=== PATIENT | male | born 1950 | race Caucasian/White ===

== ENCOUNTER → 2017-07-17 | Outpatient (CLI) | payer OTHER ==
[~2017-07-17] MED LIST: ABA250I IVPB; ACET650T40 PO; ARMO150T4 PO; ATOR20TA65 PO; BUPR-472 PO; CITA-128 PO; CITA-139 PO; CYCL10TA29 PO; DIC50 PO; DICL-195 PO; DIPH0.5D12 IM; FAMC500T18 PO; FLUD0.1T12 PO; FOL1 PO; FOLI-68 PO; GABA-547 PO; GABA-549 PO; INF100I IV; LIDO700A29 TD; LOR5/325 PO; METH2.5T43 PO; METH20CP17 PO; METH20TA40 PO; METH7.5T2 PO; MONT10TA4 PO; NABU-95 PO; PEN250 PO; PER PO; PNEU0.5D3 IM; PSYP PO; TRA50 PO; TRAM200T2 PO; TRAM300T5 PO; TYLENOL PO; VALA100059 PO; [UNRECOGNIZED DRUG - OTHER]
== END ==
LOC: LAB 14:36
PROVIDERS: ATTEND Internal Medicine Rheumatology
DX: M06.9 Rheumatoid arthritis, unspecified (principal)
CPT/HCPCS: 36415; 82040; 82247; 82310; 82374; 82435; 82565; 82947; 84075; 84132; 84155; 84295; 84450; 84460; 84520; 85027; 85651

== ENCOUNTER 2017-09-04 10:00 | Outpatient (RCR) | payer OTHER ==
[2017-06-12 10:23] VITALS: BP 140/92
[2017-07-10 10:00] VITALS: BP 130/87
[2017-07-10] MEDS: LIDOCAINE/SOD BICARB 8.4% SYR ID PRN ×2 (10:03→10:33)
[2017-07-10] MEDS: NS(*) 0.9% 100 ML BAG 100 ML IVPB PRN ×2 (10:04→10:33)
[2017-08-07 10:05] VITALS: BP 135/88
[2017-08-07] MEDS: NS(*) 0.9% 100 ML BAG 100 ML IVPB PRN (10:42)
[2017-08-07] MEDS: LIDOCAINE/SOD BICARB 8.4% SYR ID PRN (10:42)
[~2017-09-04 10:00] MED LIST changes: +ABATACEPT IVPB ONE; +DEXTROSE 5%(*) 100 ML BAG 100 ML IVPB PRN; +DULO30CA6 PO; +NS 0.9% IVPB ONE
[2017-09-04 10:15] VITALS: BP 126/93
[2017-09-04] MEDS: NS(*) 0.9% 100 ML BAG 100 ML IVPB PRN (10:53)
[2017-09-04] MEDS: LIDOCAINE/SOD BICARB 8.4% SYR ID PRN (10:53)
[2017-09-04] MEDS ORDERED: NS 0.9% IVPB ONE (11:00)
[2017-09-04] MEDS ORDERED: ABATACEPT IVPB ONE (11:00)
== END 2017-09-09 ==
LOC: SPU 10:00
PROVIDERS: ATTEND Internal Medicine Rheumatology
DX: M06.9 Rheumatoid arthritis, unspecified (principal)
CPT/HCPCS: 96365; J0129; J7050

== ENCOUNTER → 2017-09-12 | Outpatient (CLI) | payer OTHER ==
[~2017-09-12] MED LIST changes: -ABATACEPT IVPB ONE; -DEXTROSE 5%(*) 100 ML BAG 100 ML IVPB PRN; -NS 0.9% IVPB ONE
--- NOTE | 2017-09-12 11:28 | RADIOLOGY IMAGING REPORT ---
FACILITY: [facility] PATIENT NAME: Jose Luis Beasley : 1950 MR: [id number] V: [id number] EXAM DATE: ORDERING PHYSICIAN: MONIQUE SHETH TECHNOLOGIST: [place] [facility] [place] Patient: Jose Luis Beasley : 1950 Visit/Account:[id number] Date of Sevice: 09/12/2017 KNEE 3 VIEW RIGHT Given history: Rheumatoid arthritis COMPARISON STUDIES: NONE FINDINGS: Osseous structures: Intact without evidence of fracture . Joints: Joint spaces well-maintained. There is no evidence of joint space narrowing. There may be very minimal mineral deposition along the cartilaginous surface of the femoral condyles seen in the lateral view. No evidence of joint effusion. Soft tissues: normal . IMPRESSION: Very minimal intra-articular mineral deposition. Right knee joint otherwise normal Report Dictated By: Adin Rahman MD at 09/12/2017 11:19 AM Report E-Signed By: Adin Rahman MD at 09/12/2017 11:23 AM WSN:[id number]
== END ==
LOC: RAD 10:45
PROVIDERS: ATTEND Internal Medicine Rheumatology
DX: M25.561 Pain in right knee (principal); G89.29 Other chronic pain

== ENCOUNTER → 2017-11-15 | Outpatient (CLI) | payer OTHER ==
[~2017-11-15] MED LIST changes: -CITA-139 PO; +CITA-145 PO; +METH40CP PO
== END ==
LOC: LAB 08:02
PROVIDERS: ATTEND Nurse Practitioner Family
DX: R42 Dizziness and giddiness (principal); R10.9 Unspecified abdominal pain
CPT/HCPCS: 81001

== ENCOUNTER → 2017-12-22 | Outpatient (CLI) | payer OTHER ==
[~2017-12-22] MED LIST changes: +DICL-192 PO; +LORA-788 PO; +OXYGENHOME INH; +TRIA10.8
--- NOTE | 2017-12-22 08:55 | RADIOLOGY IMAGING REPORT ---
FACILITY: [facility] PATIENT NAME: Jose Luis Beasley : 1950 MR: [id number] V: [id number] EXAM DATE: ORDERING PHYSICIAN: GUI GORDON TECHNOLOGIST: Location: [facility] Patient: Jose Luis eBasley : 1950 Visit/Account:[id number] Date of Sevice: 12/22/2017 CHEST PA AND LAT HISTORY: hypoxia COMPARISON: None FINDINGS: Cardiomediastinal contours: Normal Lungs and pleura: Normal Bones/soft tissues: Normal Other findings: None significant IMPRESSION: 1. Normal chest Report Dictated By: Emerson German MD at 12/22/2017 8:51 AM Report E-Signed By: Emerson German MD at 12/22/2017 8:51 AM WSN:[id number]
== END ==
LOC: RAD 08:06
PROVIDERS: ATTEND Nurse Practitioner Family
DX: R09.02 Hypoxemia (principal); R06.02 Shortness of breath
CPT/HCPCS: 71046

== ENCOUNTER 2017-12-25 09:52 | Outpatient (RCR) | payer OTHER ==
[2017-10-02 09:54] VITALS: BP 141/80
[2017-10-02] MEDS: LIDOCAINE/SOD BICARB 8.4% SYR ID PRN (11:06)
[2017-10-02] MEDS: NS(*) 0.9% 100 ML BAG 100 ML IVPB PRN (11:06)
[2017-10-30 10:10] VITALS: BP 124/69
[2017-10-30] MEDS: NS(*) 0.9% 100 ML BAG 100 ML IVPB PRN (10:13)
[2017-10-30] MEDS: LIDOCAINE/SOD BICARB 8.4% SYR ID PRN (10:13)
[2017-10-30 10:16] LABS: PLATELET COUNT, AUTOMATED 214 K/uL (150-450)
[2017-10-30 11:07] VITALS: BP 147/84
[2017-11-27 10:03] VITALS: BP 144/74
[2017-11-27] MEDS: LIDOCAINE/SOD BICARB 8.4% SYR ID PRN (10:07)
[2017-11-27] MEDS: NS(*) 0.9% 100 ML BAG 100 ML IVPB PRN (10:07)
[2017-11-27 11:19] VITALS: BP 140/82
[~2017-12-25 09:52] MED LIST changes: +ABATACEPT IVPB ONE; +DEXTROSE 5%(*) 100 ML BAG 100 ML IVPB PRN; +NS 0.9% IVPB ONE
[2017-12-25 09:58] VITALS: BP 134/74
[2017-12-25] MEDS: LIDOCAINE/SOD BICARB 8.4% SYR ID PRN (10:15)
[2017-12-25] MEDS: NS(*) 0.9% 100 ML BAG 100 ML IVPB PRN (10:16)
[2017-12-25] MEDS ORDERED: NS 0.9% IVPB ONE (11:00)
[2017-12-25] MEDS ORDERED: ABATACEPT IVPB ONE (11:00)
[2018-01-03] MEDS ORDERED: MONT10TA4 PO (09:59)
== END 2017-12-31 ==
LOC: SPU 09:52
PROVIDERS: ATTEND Nurse Practitioner Family
DX: M06.9 Rheumatoid arthritis, unspecified (principal)
CPT/HCPCS: 36415; 84153; 85025; 96365; J0129; J7050; 82040; 82247; 82310; 82374; 82435; 82565; 82947; 84075; 84132; 84155; 84295; 84450; 84460; 84520

== ENCOUNTER → 2017-12-31 | Outpatient (CLI) | payer OTHER ==
[~2017-12-31] MED LIST changes: -ABATACEPT IVPB ONE; -DEXTROSE 5%(*) 100 ML BAG 100 ML IVPB PRN; -NS 0.9% IVPB ONE
== END ==
LOC: RESP 07:00
PROVIDERS: ATTEND Nurse Practitioner Family
DX: J98.4 Other disorders of lung (principal)
CPT/HCPCS: 94060; 94726; 94729

== ENCOUNTER 2018-01-25 08:15 | Outpatient (RCR) | payer OTHER ==
--- NOTE | 2017-12-12 16:34 | PT INITIAL EVALUATION ---
MEDICAL DIAGNOSIS: R 53.82 Chronic fatigue syndrome, M06.9 RA, R53.1 Generalized weakness TREATMENT DIAGNOSIS: Same DATE OF ONSET: 07/09/12 SUBJECTIVE: Jose Luis Beasley presents to PT for chronic fatigue, insidious onset about 5 years ago, worsened 4 years ago after shingles. He hasn't been able to exercise and hope that exercise would help reduce fatigue. Pain location is knees and described as ache. Pain scale is 0 on a ten point pain scale currently. Pain is worse with walking and better with rest. 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 Jose Luis relates he gets through his 12 hour shifts fine, but then he's too tired to do house and yard work when he's home. OBJECTIVE: Posture: Midline spine, heels 4" apart. ROM: UE's, LE's and spinal AROM WNL. Strength: UE's 5-/5, quad 4+/5, hamstrings 5-/5, ankle DF 5-/5 and PF 4/5 B. Mobility: Independent Gait: Six minutes walk test pre-test post-test BP 154/76 147/89 HR 67 72 SpO2 88% 86% Room air Dyspnea 0 2 Jhon 0-20 Fatigue 10 11 Jhon 0-20 Distance 1,810 feet, 98% of norm of 1,837 feet. [place] O2 recovered to the low 90's within one minute of seated rest. He rated B knee pain 2/10 after this test (it was 0/10 before the test). Balance: NT ASSESSMENT: Jose Luis Beasley presents with mildly low O2 sats during his ambulation , generalized weakness which may be contributing to fatigue. He's a good candidate to perform a graded exercise program to address fatigue so he can perform house and yard work outside his [employer] [employer] [facility] job. I'd like to build up to a gym program Jose Luis can do at [employer] [facility] [facility] before his work shift. Short Term Goals/Patient's Goals 4 weeks: Jose Luis reports fatigue level is 4-5/20 on Jhon scale, is independent with a gym exercise program. PLAN: Patient to be seen for Strengthening/condition, Spinal Stabilization, Stretching, Gait Trg/Balance Trg, Home Exercise Program 3x/Week for 6 weeks Thank you for this referral. If you have any questions, comments, or concerns about this report or plan, please contact me at . [facility]
--- NOTE | 2018-01-25 08:59 | PT PLAN OF CARE ---
Physician: Dulce Sebastian APRN [employer] Patient is being seen: 1-2x/week Therapist: Kate Villanueva, DHARMESH Medical Diagnosis: R 53.82 Chronic fatigue syndrome, M06.9 RA, R53.1 Generalized weakness Treatment Diagnosis: Same Date of Onset: 07/09/12 Date of Initial Evaluation: 12/12/17 Date patient was last seen: 01/25/18 Number of treatments: 8 Number of cancellations/No shows: 7 INTERVENTIONS: Strengthening/condition Spinal Stabilization Stretching Gait Trg/Balance Trg Home Exercise Program GOALS/PATIENT'S GOAL: Met: 4 weeks: Jose Luis reports fatigue level is 4-5/20 on Jhon scale, is independent with a gym exercise program. Patient Compliance: Good Prognosis: Good Reasons for discontinuing therapy: S: Jose Luis has [employer] gym and rides his bike outdoors. He relates he's using his gym membership, now mowing his yard and doing house work. His knees flared with squats, but are doing well with weighted straight leg raise strengthening. Posture: Midline spine, heels 4" apart. Strength: All improved with: UE's 5/5 except wrist extensors 5-/5 B, quads 5-/5 , hamstrings 5/5, ankle DF 5/5, PF 4+/5 B. We didn't do the six minute walk test as Jose Luis has been monitoring his O2 sats and doing well. Mobility: Independent A/P: Jose Luis Beasley has improved strength and ADL function. He's independent with his gym program. I'll DC PT to gym program. Thank you. CALE
[2018-01-28] MEDS ORDERED: TRAM200T2 PO ×2 (10:34→10:35)
== END 2018-01-25 09:29 | disposition home or self-care (01) ==
LOC: PT 08:15
PROVIDERS: ATTEND Nurse Practitioner Family
DX: R53.82 Chronic fatigue, unspecified (principal); M06.9 Rheumatoid arthritis, unspecified; R53.1 Weakness; F90.9 Attention-deficit hyperactivity disorder, unspecified type; Z99.89 Dependence on other enabling machines and devices
CPT/HCPCS: 97162

== ENCOUNTER 2018-03-25 09:48 | Outpatient (RCR) | payer OTHER ==
[2018-01-22 09:56] VITALS: BP 122/70
[2018-01-22 10:35] LABS: PLATELET COUNT, AUTOMATED 229 K/uL (150-450)
[2018-01-22] MEDS: LIDOCAINE/SOD BICARB 8.4% SYR ID PRN (11:03)
[2018-01-22] MEDS: NS(*) 0.9% 100 ML BAG 100 ML IVPB PRN (11:04)
[2018-01-22 18:04] VITALS: BP 144/81
[2018-02-19] MEDS: NS(*) 0.9% 100 ML BAG 100 ML IVPB PRN ×2 (10:07→10:35)
[2018-02-19 10:34] VITALS: BP 140/72
[2018-02-19] MEDS: LIDOCAINE/SOD BICARB 8.4% SYR ID PRN (10:44)
[~2018-03-25 09:48] MED LIST changes: +ABATACEPT IVPB ONE; +DEXTROSE 5%(*) 100 ML BAG 100 ML IVPB PRN; +NS 0.9% IVPB ONE
[2018-03-25 10:08] VITALS: BP 126/80
[2018-03-25] MEDS ORDERED: NS 0.9% IVPB ONE (10:10)
[2018-03-25] MEDS ORDERED: ABATACEPT IVPB ONE (10:10)
[2018-03-25] MEDS: LIDOCAINE/SOD BICARB 8.4% SYR ID PRN (10:12)
[2018-03-25] MEDS: NS(*) 0.9% 100 ML BAG 100 ML IVPB PRN (10:13)
[2018-03-25 11:31] VITALS: BP 130/76
== END 2018-04-21 ==
LOC: SPU 09:48
PROVIDERS: ATTEND Nurse Practitioner Family
DX: M06.9 Rheumatoid arthritis, unspecified (principal)
CPT/HCPCS: 85025; 96365; 96366; J0129; J7050; 82040; 82247; 82310; 82374; 82435; 82565; 82947; 84075; 84132; 84155; 84295; 84450; 84460; 84520

== ENCOUNTER 2018-07-16 10:00 | Outpatient (RCR) | payer OTHER ==
[2018-04-23 10:08] VITALS: BP 148/89
[2018-04-23 10:46] LABS: PLATELET COUNT, AUTOMATED 205 K/uL (150-450)
[2018-04-23] MEDS: NS(*) 0.9% 100 ML BAG 100 ML IVPB PRN (11:00)
[2018-04-23] MEDS: LIDOCAINE/SOD BICARB 8.4% SYR ID PRN (11:00)
[2018-05-21 09:57] VITALS: BP 148/83
[2018-05-21 09:58] VITALS: BP 139/76
[2018-05-21] MEDS: LIDOCAINE/SOD BICARB 8.4% SYR ID PRN (10:09)
[2018-05-21] MEDS: NS(*) 0.9% 100 ML BAG 100 ML IVPB PRN (10:10)
[2018-06-18 10:08] VITALS: BP 153/90
[2018-06-18] MEDS: LIDOCAINE/SOD BICARB 8.4% SYR ID PRN (10:15)
[2018-06-18] MEDS: NS(*) 0.9% 100 ML BAG 100 ML IVPB PRN (10:15)
[2018-06-18 11:03] VITALS: BP 151/83
[2018-07-16 10:15] VITALS: BP 150/76
[2018-07-16] MEDS: NS(*) 0.9% 100 ML BAG 100 ML IVPB PRN (10:20)
[2018-07-16 10:31] LABS: PLATELET COUNT, AUTOMATED 226 K/uL (150-450)
[2018-07-16] MEDS ORDERED: NS 0.9% IVPB ONE (10:50)
[2018-07-16] MEDS ORDERED: ABATACEPT IVPB ONE (10:50)
[2018-07-16 11:15] VITALS: BP 147/82
== END 2018-07-21 ==
LOC: SPU 10:00
PROVIDERS: ATTEND Nurse Practitioner Family
DX: M06.9 Rheumatoid arthritis, unspecified (principal); Z79.899 Other long term (current) drug therapy
CPT/HCPCS: 85025; 96365; 96366; J0129; J7050; 82040; 82247; 82310; 82374; 82435; 82565; 82947; 84075; 84132; 84155; 84295; 84450; 84460; 84520

== ENCOUNTER 2018-08-12 16:26 | Outpatient (RCR) | payer OTHER ==
[~2018-08-12 16:26] MED LIST changes: -ABATACEPT IVPB ONE; -DEXTROSE 5%(*) 100 ML BAG 100 ML IVPB PRN; -NS 0.9% IVPB ONE
[2018-08-13] MEDS ORDERED: DEXTROSE 5%(*) 100 ML BAG 100 ML IVPB PRN (07:00)
[2018-08-13] MEDS ORDERED: NS(*) 0.9% 100 ML BAG 100 ML IVPB PRN (07:00)
[2018-08-13] MEDS ORDERED: LIDOCAINE/SOD BICARB 8.4% SYR ID PRN (07:00)
== END 2018-08-13 16:59 | disposition home or self-care (01) ==
LOC: SPU 16:26
PROVIDERS: ATTEND Nurse Practitioner Family
DX: M06.9 Rheumatoid arthritis, unspecified (principal); Z79.899 Other long term (current) drug therapy

== ENCOUNTER → 2018-10-15 | Outpatient (CLI) | payer OTHER ==
[~2018-10-15] MED LIST changes: +ATOR40TA24 PO
== END ==
LOC: SPU 10:27
PROVIDERS: ATTEND Nurse Practitioner Family
DX: M06.9 Rheumatoid arthritis, unspecified (principal); Z79.899 Other long term (current) drug therapy
CPT/HCPCS: 82465; 83718; 84153; 84478

== ENCOUNTER 2018-11-12 09:49 | Outpatient (RCR) | payer OTHER ==
[2018-08-19 09:58] VITALS: BP 146/78
[2018-08-19] MEDS: LIDOCAINE/SOD BICARB 8.4% SYR ID PRN (10:08)
[2018-08-19] MEDS: NS(*) 0.9% 100 ML BAG 100 ML IVPB PRN (10:11)
[2018-08-19 12:03] VITALS: BP 150/84
[2018-09-17 10:01] VITALS: BP 172/80
[2018-09-17] MEDS: LIDOCAINE/SOD BICARB 8.4% SYR ID PRN (10:14)
[2018-09-17] MEDS: NS(*) 0.9% 100 ML BAG 100 ML IVPB PRN (10:15)
[2018-09-17 11:26] VITALS: BP 160/86
[2018-10-15 10:25] VITALS: BP 152/95
[2018-10-15] MEDS: LIDOCAINE/SOD BICARB 8.4% SYR ID PRN (10:54)
[2018-10-15] MEDS: NS(*) 0.9% 100 ML BAG 100 ML IVPB PRN (10:55)
[2018-10-15 10:57] LABS: PLATELET COUNT, AUTOMATED 253 K/uL (150-450)
[~2018-11-12 09:49] MED LIST changes: +ABATACEPT IVPB ONE; +DEXTROSE 5%(*) 100 ML BAG 100 ML IVPB PRN; -DIPH0.5D12 IM; +DIPH0.5S2 IM; +NS 0.9% IVPB ONE
[2018-11-12 09:55] VITALS: BP 152/83
[2018-11-12] MEDS: LIDOCAINE/SOD BICARB 8.4% SYR ID PRN (10:24)
[2018-11-12] MEDS ORDERED: NS 0.9% IVPB ONE (10:25)
[2018-11-12] MEDS ORDERED: ABATACEPT IVPB ONE (10:25)
[2018-11-12] MEDS: NS(*) 0.9% 100 ML BAG 100 ML IVPB PRN (10:25)
[2018-11-12 11:32] VITALS: BP 162/79
== END 2018-11-14 ==
LOC: SPU 09:49
PROVIDERS: ATTEND Nurse Practitioner Family
DX: M06.9 Rheumatoid arthritis, unspecified (principal); Z79.899 Other long term (current) drug therapy
CPT/HCPCS: 85025; 96365; J0129; J7050; 82040; 82247; 82310; 82374; 82435; 82565; 82947; 84075; 84132; 84155; 84295; 84450; 84460; 84520

== ENCOUNTER → 2019-01-06 | Outpatient (CLI) | payer OTHER ==
[~2019-01-06] MED LIST changes: -ABATACEPT IVPB ONE; -DEXTROSE 5%(*) 100 ML BAG 100 ML IVPB PRN; -NS 0.9% IVPB ONE; +PNEI IJ
--- NOTE | 2019-01-06 13:18 | RADIOLOGY IMAGING REPORT ---
FACILITY: [facility] PATIENT NAME: Jose Luis Beasley : 1950 MR: [id number] V: [id number] EXAM DATE: ORDERING PHYSICIAN: GUI GORDON TECHNOLOGIST: Location: [facility] Patient: Jose Luis Beasley : 1950 Visit/Account:[id number] Date of Sevice: 01/06/2019 BONE DENSITY HISTORY: osteopenia COMPARISON: DEXA examination from November 2015 FINDINGS: LUMBAR SPINE: Bone mineral density (BMD) measured from L1-L4 correlates with a Z-score of 0.0 and a T-score of 0.3 which is normal as defined by the World Health Organization. The corresponding risk of fracture in t he lumbar spine is not increased compared with a young adult reference population. This value has de creased by 2.6% since the prior study. More than 5% change is considered significant. HIP: Bone mineral density (BMD) measured in the left total hip region correlates with a Z-score of -1.3 an d a T-score of -1.4 which is osteopenia as defined by the World Health Organization. The correspondi ng risk of fracture in the hip is 2-3 times compared with a young adult reference population. This v alue has decreased by 5.2% since the prior study. More than 5% change is considered significant. Bone mineral density (BMD) measured in the left Femoral Neck region measures 0.826 g/cm2. T score is -1.9. Osteopenia. IMPRESSION: 1. Lumbar spine: Normal. There has been no significant change in the bone mineral density since previous exam. 2. Left Total Hip: Osteopenia. There has been significant interval decrease in the bone mineral de nsity since the previous exam. 3. Left Femoral Neck: Bone Mineral Density is 0.826 g/cm2. Osteopenia The next DEXA scan of this patient should include the following sites: L1-L4 and left hip. FRAX? WHO Fracture Risk Assessment Tool link: <http://www.shef.ac.uk/FRAX/tool.jsp?locationValue=9> PLEASE NOTE: 1) The World Health Organization defines low BMD as follows: T-score Normal > -1 Osteopenia < -1 and > -2.5 Osteoporosis < -2.5 without fractures Established osteoporosis < -2.5 with fractures 2) In general, you may wish to consider: Diagnosis Treatment Follow-up DEXA Normal BMD Prevention 2-3 years Osteopenia Prevention/therapy 1-2 years Osteoporosis Therapy Yearly 3) Fracture risk estimated from the T-score is more accurate for vertebral fractures (often spontane ous) than for hip fractures. Report Dictated By: Gaudencio Haynes MD at 01/06/2019 1:09 PM Report E-Signed By: Gaudencio Haynes MD at 01/06/2019 1:11 PM WSN:[id number]
== END ==
LOC: RAD 02:54
PROVIDERS: ATTEND Nurse Practitioner Family
DX: M85.852 Other specified disorders of bone density and structure, left thigh (principal)
CPT/HCPCS: 77080